=== PATIENT | male | born 1950 ===

== ENCOUNTER 2019-03-09 21:05 | Inpatient (IN) | payer OTHER ==
[~2019-03-09] VITALS: Ht 182.9 cm; Wt 45.0 kg
[2019-03-09 21:32] LABS: HEMATOCRIT 39.4 % (39.0-50.0); HEMOGLOBIN 12.2 g/dl (14.0-18.0); IMMATURE GRANULOCYTES 1.8 % (0.0-5.0); MEAN CELL VOLUME 96.1 fL CALC (80.0-100.0); MEAN CORPUSCULAR HGB 29.8 pG CALC (26.0-32.0); NEUT# 12.07 thou/uL (1.82-7.42); RED BLOOD COUNT 4.1 mill/uL (4.70-6.10); RED CELL DISTRI WIDTH 13.3 % (11.5-15.5)
[2019-03-09 21:40] LABS: ALBUMIN 3.8 g/dL (3.2-5.0); ALKALINE PHOSPHATASE 111 u/l (38-126); ANION GAP 13 (6-22 (CALC)); BILIRUBIN, TOTAL 0.7 mg/dL (0.0-1.4); BUN 13 mg/dL (8-23); BUN/CREATININE RATIO 37 (12-20 (CALC)); CARBON DIOXIDE 36 mmol/l (22-30); CHLORIDE 91 mmol/l (95-108); CREATININE 0.4 mg/dL (0.7-1.3); GFR > 60 ML/MIN (>=60 (CALC)); GFR FOR AFR.AMER. > 60 ML/MIN (>=60 (CALC)); POTASSIUM 4.3 mmol/l (3.5-5.1); SGOT/AST 15 u/l (19-48); SODIUM 135 mmol/l (137-146); TOTAL PROTEIN 6.8 g/dL (6.3-8.2)
[2019-03-09] MEDS ORDERED: PREDNISONE20 MG PO (21:55)
[2019-03-09] MEDS ORDERED: AUGMENTIN875TAB PO (21:56)
[2019-03-09] MEDS ORDERED: PROVENTIL0.083 % IN (21:58)
[2019-03-09] MEDS ORDERED: IPRATROPIUM BROMIDE IN (22:00)
[2019-03-09] MEDS ORDERED: ROCEPHIN 1 GM1 GM IV (22:02)
[2019-03-10] VITALS (24 sets, daily range): BP systolic 96–159; BP diastolic 53–105
[2019-03-10 01:18] LABS: URINE BILIRUBIN - DIPSTICK NEGATIVE (NEGATIVE); URINE BLOOD DIPSTICK NEGATIVE (NEGATIVE); URINE COLOR YELLOW; URINE GLUCOSE - DIPSTICK 500 mg/dL (NEGATIVE); URINE KETONE 15 mg/dL (NEGATIVE); URINE LEUK ESTERASE NEGATIVE (NEGATIVE); URINE NITRITE - DIPSTICK NEGATIVE (Negative); URINE PH 6.5 (4.5-8.0); URINE PROTEIN - DIPSTICK NEGATIVE (NEG-TRACE); URINE UROBILINOGEN - DIPSTICK 0.2 E.U./dL (0.2)
[2019-03-10] MEDS ORDERED: PREDNISONE10 MG PO (02:16)
[2019-03-10] MEDS ORDERED: BRIMONIDINE0.2 % OU (02:23)
[2019-03-10] MEDS ORDERED: ASPIRIN81 MG PO (02:25)
[2019-03-10] MEDS ORDERED: BACLOFEN10 MG PO (02:27)
[2019-03-10 04:44] LABS: HEMATOCRIT 38.7 % (39.0-50.0); HEMOGLOBIN 12.2 g/dl (14.0-18.0); IMMATURE GRANULOCYTES 0.4 % (0.0-5.0); MEAN CELL VOLUME 95.6 fL CALC (80.0-100.0); MEAN CORPUSCULAR HGB 30.1 pG CALC (26.0-32.0); MEAN CORPUSCULAR HGB CONC 31.5 g/L CALC (32.0-36.0); NEUT# 13.32 thou/uL (1.82-7.42); RED BLOOD COUNT 4.05 mill/uL (4.70-6.10); RED CELL DISTRI WIDTH 13.2 % (11.5-15.5)
[2019-03-10 05:10] LABS: ALBUMIN 3.4 g/dL (3.2-5.0); ALKALINE PHOSPHATASE 102 u/l (38-126); ANION GAP 12 (6-22 (CALC)); BILIRUBIN, TOTAL 0.6 mg/dL (0.0-1.4); BUN 11 mg/dL (8-23); BUN/CREATININE RATIO 32 (12-20 (CALC)); CARBON DIOXIDE 34 mmol/l (22-30); CHLORIDE 94 mmol/l (95-108); CREATININE 0.4 mg/dL (0.7-1.3); GFR > 60 ML/MIN (>=60 (CALC)); GFR FOR AFR.AMER. > 60 ML/MIN (>=60 (CALC)); POTASSIUM 4.4 mmol/l (3.5-5.1); SGOT/AST 14 u/l (19-48); SODIUM 136 mmol/l (137-146); TOTAL PROTEIN 6.2 g/dL (6.3-8.2)
[2019-03-11] VITALS (14 sets, daily range): BP systolic 103–195; BP diastolic 56–82
[2019-03-11 09:23] LABS: HEMATOCRIT 41.2 % (39.0-50.0); HEMOGLOBIN 12.6 g/dl (14.0-18.0); IMMATURE GRANULOCYTES 0.4 % (0.0-5.0); MEAN CELL VOLUME 96.9 fL CALC (80.0-100.0); MEAN CORPUSCULAR HGB 29.6 pG CALC (26.0-32.0); MEAN CORPUSCULAR HGB CONC 30.6 g/L CALC (32.0-36.0); NEUT# 11.58 thou/uL (1.82-7.42); RED BLOOD COUNT 4.25 mill/uL (4.70-6.10); RED CELL DISTRI WIDTH 13.6 % (11.5-15.5)
[2019-03-11 09:34] LABS: ALBUMIN 3.2 g/dL (3.2-5.0); ALKALINE PHOSPHATASE 88 u/l (38-126); ANION GAP 12 (6-22 (CALC)); BILIRUBIN, TOTAL 0.5 mg/dL (0.0-1.4); BUN 18 mg/dL (8-23); BUN/CREATININE RATIO 47 (12-20 (CALC)); CARBON DIOXIDE 35 mmol/l (22-30); CHLORIDE 93 mmol/l (95-108); CREATININE 0.4 mg/dL (0.7-1.3); GFR > 60 ML/MIN (>=60 (CALC)); GFR FOR AFR.AMER. > 60 ML/MIN (>=60 (CALC)); POTASSIUM 4.9 mmol/l (3.5-5.1); SGOT/AST 15 u/l (19-48); SODIUM 135 mmol/l (137-146); TOTAL PROTEIN 5.9 g/dL (6.3-8.2)
[2019-03-11] MEDS ORDERED: BRIMONIDINE0.2 % OU (14:39)
[2019-03-11] MEDS ORDERED: TRAVATAN Z0.004 % OU (14:40)
[2019-03-12 00:16] VITALS: BP 101/45
[2019-03-12 04:15] VITALS: BP 111/66
[2019-03-12 08:00] VITALS: BP 118/49
[2019-03-12 11:23] VITALS: BP 111/65
[2019-03-12 15:40] VITALS: BP 105/58
[2019-03-12 19:07] VITALS: BP 124/59
[2019-03-13 00:20] VITALS: BP 124/59
[2019-03-13 04:21] VITALS: BP 138/40
[2019-03-13 08:58] VITALS: BP 142/84
[2019-03-13 11:17] VITALS: BP 134/70
[2019-03-13 15:05] VITALS: BP 125/83
[2019-03-13 19:30] VITALS: BP 139/69
[2019-03-14 00:35] VITALS: BP 128/72
[2019-03-14 04:45] VITALS: BP 112/72
[2019-03-14 05:49] LABS: HEMATOCRIT 42.7 % (39.0-50.0); MEAN CELL VOLUME 99.1 fL CALC (80.0-100.0); MEAN CORPUSCULAR HGB 30.2 pG CALC (26.0-32.0); MEAN CORPUSCULAR HGB CONC 30.4 g/L CALC (32.0-36.0); RED BLOOD COUNT 4.31 mill/uL (4.70-6.10); RED CELL DISTRI WIDTH 13.5 % (11.5-15.5)
[2019-03-14 06:06] LABS: BUN 19 mg/dL (8-23); BUN/CREATININE RATIO 36 (12-20 (CALC)); CHLORIDE 93 mmol/l (95-108); CREATININE 0.5 mg/dL (0.7-1.3); GFR > 60 ML/MIN (>=60 (CALC)); GFR FOR AFR.AMER. > 60 ML/MIN (>=60 (CALC)); POTASSIUM 4.6 mmol/l (3.5-5.1); SODIUM 139 mmol/l (137-146)
[2019-03-14 06:14] LABS: ANION GAP 9 (6-22 (CALC))
[2019-03-14 06:33] LABS: CARBON DIOXIDE 42 mmol/l (22-30)
[2019-03-14 08:41] VITALS: BP 108/70
[2019-03-14 12:00] VITALS: BP 146/81
[2019-03-14] MEDS ORDERED: Levaquin PO (14:25)
[2019-03-14] MEDS ORDERED: MEDDOSEPAK PO (14:26)
== END 2019-03-14 16:28 | disposition designated cancer center or children's hospital (05) | DRG 178 ==
LOC: ED 21:05 → ED-I 21:19 → ED 21:19 → ED-I 03-10 → ED 03-10 00:13 → ICU 03-10 00:14 → MS2 03-11 13:55
PROVIDERS: Emergency Medicine; Internal Medicine; ADMIT Internal Medicine; ATTEND Internal Medicine
DX: J15.1 Pneumonia due to Pseudomonas (principal); J96.11 Chronic respiratory failure with hypoxia; J43.9 Emphysema, unspecified; K21.9 Gastro-esophageal reflux disease without esophagitis; M19.90 Unspecified osteoarthritis, unspecified site; H40.9 Unspecified glaucoma; Z99.81 Dependence on supplemental oxygen; Z87.891 Personal history of nicotine dependence
CPT/HCPCS: J0692; J1650